=== PATIENT | female | born 1960 | race Caucasian/White ===

== ENCOUNTER → 2019-08-13 | Outpatient (CLI) | payer BC ==
[2019-08-13] MEDS: Sodium Chloride 0.9% 10 ML Syringe FLUSH ONE (10:30)
[2019-08-13] MEDS: Iopamidol 612 MG/ML 100 ML Bottle IVPUSH ONE (10:30)
== END ==
LOC: LL.CT 09:24
PROVIDERS: ATTEND Nurse Practitioner Family
DX: Z12.31 Encounter for screening mammogram for malignant neoplasm of breast (principal); M47.812 Spondylosis without myelopathy or radiculopathy, cervical region; M48.02 Spinal stenosis, cervical region; R59.0 Localized enlarged lymph nodes; M85.80 Other specified disorders of bone density and structure, unspecified site; Z78.0 Asymptomatic menopausal state
CPT/HCPCS: 70491; 77063; 77067; 77080; Q9967

== ENCOUNTER 2022-09-20 22:21 | Emergency (ER) | payer BC ==
[2022-09-20] MEDS ORDERED: Aspirin 81 MG Tab.Chew PO ONE (22:29)
[2022-09-20] MEDS ORDERED: Nitroglycerin 0.4 MG Tab.SL SL ONE (22:30)
[2022-09-20 23:08] LABS: CHLORIDE,CL 106 mmol/L (98-107); ESTIMATED GFR 68 mL/min (>=60); SODIUM,NA 140 mmol/L (136-145)
[2022-09-20 23:27] LABS: CORONAVIRUS COVID-19 NAA NEGATIVE (NEGATIVE); RESPIRATORY SYNCYTIAL VIR NAA POSITIVE (NEGATIVE)
[2022-09-20] MEDS ORDERED: Benzonatate 100 MG Cap PO ONE (23:34)
[2022-09-20] MEDS ORDERED: methylPREDNISolone Sodium Succinate 125 MG/2 ML SDV IVPUSH ONE (23:34)
[2022-09-20] MEDS ORDERED: Ketorolac 30 MG/ML SDV IVPUSH ONE (23:34)
[2022-09-20] MEDS: Sodium Chloride 0.9% 10 ML Syringe FLUSH PRN ×2 (23:45→23:47)
[2022-09-21] MEDS ORDERED: traMADol 50 MG Tab PO ONE (00:01)
== END 2022-09-20 23:59 | disposition home or self-care (01) ==
LOC: LL.ED 22:21
DX: R05.9 Cough, unspecified (principal); B97.4 Respiratory syncytial virus as the cause of diseases classified elsewhere; J44.9 Chronic obstructive pulmonary disease, unspecified; E66.9 Obesity, unspecified; Z68.30 Body mass index [BMI] 30.0-30.9, adult; Z88.0 Allergy status to penicillin; Z88.2 Allergy status to sulfonamides; Z88.8 Allergy status to other drugs, medicaments and biological substances; Z87.891 Personal history of nicotine dependence; Z20.822 Contact with and (suspected) exposure to COVID-19
CPT/HCPCS: 0241U; 36415; 71046; 80053; 82550; 84484; 85025; 85379; 85610; 93005; 93010; 96374; 96375; 99284; 99284-25; A9270-GY; J1885; J2930; J3490

== ENCOUNTER 2023-05-16 21:33 | Inpatient (IN) | payer BC ==
[2023-05-16] MEDS ORDERED: Albuterol/Ipratropium 3.0-0.5 MG/3 ML Neb Soln NEB ONE (21:48)
[2023-05-16 22:05] LABS: BASOPHILS ABSOLUTE AUTO 0.04 K/uL (0.00-0.20); BASOPHILS PERCENT AUTO 0.7 % (0.0-2.0); EOSINOPHILS ABSOLUTE AUTO 0.22 K/uL (0.00-0.50); EOSINOPHILS PERCENT AUTO 3.6 % (0.0-5.0); HEMATOCRIT 35.7 % (34.0-46.0); LYMPHOCYTES ABSOLUTE AUTO 0.97 K/uL (0.50-3.50); LYMPHOCYTES PERCENT AUTO 16.1 % (10.0-50.0); MEAN CORPUSCULAR HEMOGLOBIN 30.1 pg (28.2-33.3); MEAN CORPUSCULAR HGB CONC 33.6 g/dL (31.7-36.0); MEAN CORPUSCULAR VOLUME 89.5 fL (84.0-98.0); MONOCYTES ABSOLUTE AUTO 0.53 K/uL (0.00-1.00); MONOCYTES PERCENT AUTO 8.8 % (2.0-14.0); NEUTROPHILS ABSOLUTE AUTO 4.27 K/uL (1.40-7.00); NEUTROPHILS PERCENT AUTO 70.8 % (45.0-80.0); PLATELET COUNT,PLT 229 K/uL (150-350); RED BLOOD CELL COUNT 3.99 M/uL (3.77-5.09); RED CELL DISTRIBUTION WIDTH 12.6 % (11.2-14.1)
[2023-05-16 22:26] LABS: ALANINE AMINOTRANSFERASE,ALT 20 U/L (12-78); ALBUMIN 3.1 g/dL (3.4-5.0); ALKALINE PHOSPHATASE 112 IU/L (46-116); ANION GAP 6.9 meq/L (7-15); ASPARTATE AMNIOTRANSFERASE,AST 19 U/L (15-37); BILIRUBIN TOTAL 0.4 mg/dL (0.2-1.0); BLOOD UREA NITROGEN,BUN 19 mg/dL (7-18); CARBON DIOXIDE,CO2 27.1 mmol/L (21.0-32.0); CHLORIDE,CL 102 mmol/L (98-107); CREATININE 1.01 mg/dL (0.51-1.17); ESTIMATED GFR 62 mL/min (>=60); GLUCOSE RANDOM 131 mg/dL (70-99); MAGNESIUM 1.9 mg/dL (1.8-2.4); PRO B-TYPE NATRIUR PEPT,BNPPRO 86 pg/mL (0-125); PROTEIN TOTAL,TP 7.1 g/dL (6.4-8.2); SODIUM,NA 136 mmol/L (136-145)
[2023-05-16] MEDS ORDERED: Iopamidol 755 Mg/ML 100 ML Bottle IVPUSH ONE (23:03)
[2023-05-16] MEDS ORDERED: methylPREDNISolone Sodium Succinate 125 MG/2 ML SDV IVPUSH ONE (23:09)
[2023-05-16] MEDS ORDERED: Benzonatate 100 MG Cap PO PRN ×2 (23:11→23:45)
[2023-05-16] MEDS ORDERED: Sodium Chloride 0.9% 500 ML IV SCH (23:15)
[2023-05-17] MEDS: Azithromycin 500 MG in Sodium Chloride 0.9% 250 ML IV SCH ×2 (00:05→22:04)
[2023-05-17] MEDS ORDERED: Sodium Chloride 0.9% 10 ML Syringe FLUSH PRN (00:09)
[2023-05-17] MEDS: ALPRAZolam 0.25 MG Tab PO PRN ×2 (00:17→22:04)
[2023-05-17] MEDS: Albuterol/Ipratropium 3.0-0.5 MG/3 ML Neb Soln NEB SCH ×4 (01:33→19:32)
[2023-05-17] MEDS: Rosuvastatin 10 MG Tab PO SCH (07:52)
[2023-05-17] MEDS: Sertraline 50 MG Tab PO SCH (07:54)
[2023-05-17] MEDS: Lisinopril 5 MG Tab PO SCH (07:55)
[2023-05-17] MEDS ORDERED: Non-Formulary Medication 1 Each (Fluticasone/Umeclidin/Vilanter [Trelegy Ellipta 200-62.5- INH SCH (08:00)
[2023-05-17 08:05] LABS: BASOPHILS ABSOLUTE AUTO 0.02 K/uL (0.00-0.20); BASOPHILS PERCENT AUTO 0.4 % (0.0-2.0); EOSINOPHILS ABSOLUTE AUTO 0.01 K/uL (0.00-0.50); EOSINOPHILS PERCENT AUTO 0.2 % (0.0-5.0); LYMPHOCYTES ABSOLUTE AUTO 0.63 K/uL (0.50-3.50); MEAN CORPUSCULAR HEMOGLOBIN 29.8 pg (28.2-33.3); MEAN CORPUSCULAR HGB CONC 33.3 g/dL (31.7-36.0); MEAN CORPUSCULAR VOLUME 89.3 fL (84.0-98.0); MONOCYTES ABSOLUTE AUTO 0.04 K/uL (0.00-1.00); MONOCYTES PERCENT AUTO 0.8 % (2.0-14.0); NEUTROPHILS ABSOLUTE AUTO 4.53 K/uL (1.40-7.00); NEUTROPHILS PERCENT AUTO 86.6 % (45.0-80.0); PLATELET COUNT,PLT 229 K/uL (150-350); RED BLOOD CELL COUNT 4.03 M/uL (3.77-5.09); RED CELL DISTRIBUTION WIDTH 12.5 % (11.2-14.1); WHITE BLOOD CELL COUNT,WBC 5.2 K/uL (4.0-10.2)
[2023-05-17 08:27] LABS: APPEARANCE,URINE SLIGHTLY CLOUDY; BILIRUBIN,URINE NEGATIVE (NEGATIVE); COLOR,URINE DARK YELLOW; GLUCOSE,URINE NEGATIVE (NEGATIVE); KETONES,URINE NEGATIVE (NEGATIVE); LEUKOCYTE ESTERASE,URINE NEGATIVE (NEGATIVE); NITRITE,URINE NEGATIVE (NEGATIVE); OCCULT BLOOD,URINE NEGATIVE (NEGATIVE); PH,URINE 5.5 (5.0-9.0); PROTEIN,URINE NEGATIVE (NEGATIVE); UROBILINOGEN,URINE 0.2 E.U./dL (0.2-1.0)
[2023-05-17 08:35] LABS: BACTERIA,URINE FEW /HPF (NONE TO FEW); EPITHELIAL CELLS,URINE MANY /LPF; RBC,URINE NOT SEEN /HPF; WBC,URINE 0-5 /HPF
[2023-05-17 08:36] LABS: OTHER CRYSTALS,URINE FEW /HPF
[2023-05-17 08:57] LABS: ANION GAP 12.8 meq/L (7-15); CALCIUM 8.7 mg/dL (8.5-10.1); CARBON DIOXIDE,CO2 23.2 mmol/L (21.0-32.0); CREATININE 1.26 mg/dL (0.51-1.17); EST CRCL DRUG DOSING (CG) 34.04 mL/min; POTASSIUM,K 3.8 mmol/L (3.5-5.1)
[2023-05-17] MEDS ORDERED: Sodium Chloride 0.9% 1,000 ML IV SCH ×2 (11:30→22:00)
[2023-05-17] MEDS ORDERED: Enoxaparin 40 MG/0.4 ML Syringe SUBCUT ONE (11:44)
[2023-05-17 12:18] LABS: HEMOGLOBIN A1C 5.6 % (4.3-5.7)
[2023-05-17] MEDS: Enoxaparin 40 MG/0.4 ML Syringe SUBCUT SCH ×2 (12:55→20:47)
[2023-05-17] MEDS ORDERED: methylPREDNISolone Sodium Succinate 125 MG/2 ML SDV IVPUSH ONE (13:00)
[2023-05-17] MEDS: VILANTEROL INH SCH (19:13)
[2023-05-17] MEDS: UMECLIDINIUM INH SCH (19:13)
[2023-05-17] MEDS: [UNRECOGNIZED DRUG - OTHER] INH SCH (19:13)
[2023-05-17] MEDS ORDERED: Glucagon,Human Recombinant 1 MG Vial IM PRN (22:01)
[2023-05-17] MEDS ORDERED: 50% Dextrose in Water 50 ML Syringe IVPUSH PRN (22:01)
[2023-05-18] MEDS: Albuterol/Ipratropium 3.0-0.5 MG/3 ML Neb Soln NEB SCH ×2 (02:18→07:45)
[2023-05-18] MEDS ORDERED: Acetaminophen 325 MG Tab PO PRN (02:21)
[2023-05-18] MEDS ORDERED: Insulin Lispro 100 Units/ML 3 ML Vial SUBCUT SCH (07:00)
[2023-05-18] MEDS: Sertraline 50 MG Tab PO SCH (07:45)
[2023-05-18] MEDS: Enoxaparin 40 MG/0.4 ML Syringe SUBCUT SCH (07:45)
[2023-05-18 07:46] LABS: CALCIUM 8.3 mg/dL (8.5-10.1); CARBON DIOXIDE,CO2 24.3 mmol/L (21.0-32.0); EST CRCL DRUG DOSING (CG) 42.89 mL/min; POTASSIUM,K 4.2 mmol/L (3.5-5.1)
[2023-05-18] MEDS: Lisinopril 5 MG Tab PO SCH (07:46)
[2023-05-18] MEDS: Rosuvastatin 10 MG Tab PO SCH (07:46)
[2023-05-18] MEDS: UMECLIDINIUM INH SCH (07:47)
[2023-05-18] MEDS: [UNRECOGNIZED DRUG - OTHER] INH SCH (07:47)
[2023-05-18] MEDS: VILANTEROL INH SCH (07:47)
[2023-05-18 07:48] LABS: BASOPHILS ABSOLUTE AUTO 0.01 K/uL (0.00-0.20); BASOPHILS PERCENT AUTO 0.1 % (0.0-2.0); HEMATOCRIT 30.8 % (34.0-46.0); HEMOGLOBIN 10.4 g/dL (11.7-15.5); LYMPHOCYTES ABSOLUTE AUTO 0.79 K/uL (0.50-3.50); LYMPHOCYTES PERCENT AUTO 8.6 % (10.0-50.0); MEAN CORPUSCULAR HEMOGLOBIN 30.5 pg (28.2-33.3); MEAN CORPUSCULAR HGB CONC 33.8 g/dL (31.7-36.0); MEAN CORPUSCULAR VOLUME 90.3 fL (84.0-98.0); MONOCYTES ABSOLUTE AUTO 0.48 K/uL (0.00-1.00); MONOCYTES PERCENT AUTO 5.2 % (2.0-14.0); NEUTROPHILS ABSOLUTE AUTO 7.92 K/uL (1.40-7.00); NEUTROPHILS PERCENT AUTO 86.1 % (45.0-80.0); PLATELET COUNT,PLT 221 K/uL (150-350); RED BLOOD CELL COUNT 3.41 M/uL (3.77-5.09); RED CELL DISTRIBUTION WIDTH 12.6 % (11.2-14.1); WHITE BLOOD CELL COUNT,WBC 9.2 K/uL (4.0-10.2)
[2023-05-18 07:53] LABS: ANION GAP 12.9 meq/L (7-15)
[2023-05-18] MEDS ORDERED: predniSONE 20 MG Tab PO ONE (08:00)
== END 2023-05-18 09:54 | disposition home or self-care (01) | DRG 140 ==
LOC: LL.ED 21:33 → LL.MS 22:45
PROVIDERS: ADMIT Emergency Medicine; ATTEND Emergency Medicine
DX: J44.1 Chronic obstructive pulmonary disease with (acute) exacerbation (principal); E78.00 Pure hypercholesterolemia, unspecified; I10 Essential (primary) hypertension; F41.9 Anxiety disorder, unspecified; F32.A Depression, unspecified; R09.02 Hypoxemia; E66.01 Morbid (severe) obesity due to excess calories; R73.9 Hyperglycemia, unspecified; R79.89 Other specified abnormal findings of blood chemistry; T38.0X5A Adverse effect of glucocorticoids and synthetic analogues, initial encounter; Z68.41 Body mass index [BMI] 40.0-44.9, adult; Z88.0 Allergy status to penicillin; Z88.8 Allergy status to other drugs, medicaments and biological substances; Z88.2 Allergy status to sulfonamides; Z79.899 Other long term (current) drug therapy; Z87.891 Personal history of nicotine dependence
CPT/HCPCS: 36415; 71046; 71275; 80048; 80053; 81001; 82947; 83036; 83735; 83880; 84484; 85025; 85379; 93005; 93010; 94640; 97165-GO; 99285; A9270-GY; J0456; J1650; J1815-GY; J2930; J7030; J7040; J7050; J7512; J7620-GY; Q9967

== ENCOUNTER 2024-10-01 15:43 | Emergency (ER) | payer MEDICARE ==
[2024-10-01] MEDS ORDERED: Sodium Chloride 0.9% 10 ML Syringe FLUSH PRN (15:59)
[2024-10-01 16:57] LABS: BASOPHILS ABSOLUTE AUTO 0.05 K/uL (0.00-0.20); BASOPHILS PERCENT AUTO 0.5 % (0.0-2.0); HEMATOCRIT 40.7 % (34.0-46.0); HEMOGLOBIN 13.4 g/dL (11.7-15.5); IMMATURE GRAN ABSOLUTE AUTO 0.04 10^3/uL (0.00-0.04); IMMATURE GRAN PERCENT AUTO 0.4 % (0.0-0.4); LYMPHOCYTES ABSOLUTE AUTO 0.62 K/uL (0.50-3.50); LYMPHOCYTES PERCENT AUTO 6.5 % (10.0-50.0); MEAN CORPUSCULAR HEMOGLOBIN 28.8 pg (28.2-33.3); MEAN CORPUSCULAR HGB CONC 32.9 g/dL (31.7-36.0); MEAN CORPUSCULAR VOLUME 87.5 fL (84.0-98.0); MONOCYTES ABSOLUTE AUTO 0.64 K/uL (0.00-1.00); MONOCYTES PERCENT AUTO 6.7 % (2.0-14.0); NEUTROPHILS ABSOLUTE AUTO 8.21 K/uL (1.40-7.00); NEUTROPHILS PERCENT AUTO 85.9 % (45.0-80.0); PLATELET COUNT,PLT 141 K/uL (150-350); RED BLOOD CELL COUNT 4.65 M/uL (3.77-5.09); RED CELL DISTRIBUTION WIDTH 12.9 % (11.2-14.1); WHITE BLOOD CELL COUNT,WBC 9.6 K/uL (4.0-10.2)
[2024-10-01 17:06] LABS: ALBUMIN 3.6 g/dL (3.4-5.0); C-REACTIVE PROTEIN 4.6 mg/dL (0.05-0.30); CALCIUM 9.1 mg/dL (8.5-10.1); CARBON DIOXIDE,CO2 23.6 mmol/L (21.0-32.0); CREATININE 1.13 mg/dL (0.51-1.17); EST CRCL DRUG DOSING (CG) 35.18 mL/min; MAGNESIUM 2.3 mg/dL (1.8-2.4); PROTEIN TOTAL,TP 7.6 g/dL (6.4-8.2)
[2024-10-01 17:09] LABS: APPEARANCE,URINE SLIGHTLY CLOUDY; BILIRUBIN,URINE SMALL (NEGATIVE); COLOR,URINE YELLOW; GLUCOSE,URINE NEGATIVE (NEGATIVE); KETONES,URINE TRACE mg/dL (NEGATIVE); LEUKOCYTE ESTERASE,URINE NEGATIVE (NEGATIVE); NITRITE,URINE NEGATIVE (NEGATIVE); OCCULT BLOOD,URINE NEGATIVE (NEGATIVE); PROTEIN,URINE 100 mg/dL (NEGATIVE)
[2024-10-01 17:09] LABS: ANION GAP 15.4 meq/L (7-15)
[2024-10-01 17:12] LABS: LACTIC ACID 0.6 mmol/L (0.4-2.0)
[2024-10-01 17:22] LABS: BACTERIA,URINE RARE /HPF (NONE TO FEW); EPITHELIAL CELLS,URINE MANY /LPF; MUCUS,URINE MODERATE /LPF (NEGATIVE); RBC,URINE 0-5 /HPF; WBC,URINE 0-5 /HPF
[2024-10-01] MEDS: Take Home: traMADol 50 MG, 4 Tab Pack PO ONE (18:03)
== END 2024-10-01 18:10 | disposition home or self-care (01) ==
LOC: LL.ED 15:43
DX: U07.1 COVID-19 (principal); I10 Essential (primary) hypertension; E78.00 Pure hypercholesterolemia, unspecified; E66.9 Obesity, unspecified; Z90.710 Acquired absence of both cervix and uterus; Z79.899 Other long term (current) drug therapy; Z79.51 Long term (current) use of inhaled steroids; Z88.0 Allergy status to penicillin; Z88.2 Allergy status to sulfonamides; Z88.8 Allergy status to other drugs, medicaments and biological substances; Z68.41 Body mass index [BMI] 40.0-44.9, adult
CPT/HCPCS: 36415; 71045; 80053; 81001; 83605; 83735; 85025; 86140; 87040; 87428-QW; 87651-QW; 99284; 99285; A9270-GY

== ENCOUNTER 2025-07-20 08:22 | Emergency (ER) | payer MEDICARE ==
[2025-07-20 08:56] LABS: BASOPHILS ABSOLUTE AUTO 0.05 K/uL (0.00-0.20); BASOPHILS PERCENT AUTO 0.8 % (0.0-2.0); EOSINOPHILS ABSOLUTE AUTO 0.22 K/uL (0.00-0.50); EOSINOPHILS PERCENT AUTO 3.5 % (0.0-5.0); IMMATURE GRAN ABSOLUTE AUTO 0.09 10^3/uL (0.00-0.04); IMMATURE GRAN PERCENT AUTO 1.4 % (0.0-0.4); LYMPHOCYTES ABSOLUTE AUTO 0.97 K/uL (0.50-3.50); LYMPHOCYTES PERCENT AUTO 15.3 % (10.0-50.0); MONOCYTES ABSOLUTE AUTO 0.54 K/uL (0.00-1.00); MONOCYTES PERCENT AUTO 8.5 % (2.0-14.0); NEUTROPHILS ABSOLUTE AUTO 4.47 K/uL (1.40-7.00); NEUTROPHILS PERCENT AUTO 70.5 % (45.0-80.0); PLATELET COUNT,PLT 224 K/uL (150-350); RED BLOOD CELL COUNT 4.18 M/uL (3.77-5.09); RED CELL DISTRIBUTION WIDTH 12.1 % (11.2-14.1); WHITE BLOOD CELL COUNT,WBC 6.3 K/uL (4.0-10.2)
[2025-07-20 09:22] LABS: ALANINE AMINOTRANSFERASE,ALT 27 U/L (12-78); ASPARTATE AMNIOTRANSFERASE,AST 22 U/L (15-37); BILIRUBIN TOTAL 0.4 mg/dL (0.2-1.0); BLOOD UREA NITROGEN,BUN 13 mg/dL (7-18); CARBON DIOXIDE,CO2 29.6 mmol/L (21.0-32.0); CHLORIDE,CL 107 mmol/L (98-107); CREATININE 0.93 mg/dL (0.51-1.17); GLUCOSE RANDOM 118 mg/dL (70-99); POTASSIUM,K 3.6 mmol/L (3.5-5.1); PROTEIN TOTAL,TP 7.3 g/dL (6.4-8.2); SODIUM,NA 145 mmol/L (136-145)
[2025-07-20 09:27] LABS: ESTIMATED GFR 67 mL/min (>=60)
[2025-07-20 10:30] LABS: CORONAVIRUS COVID-19 NAA NEGATIVE (NEGATIVE); INFLUENZA A NAA NEGATIVE (NEGATIVE); INFLUENZA B NAA NEGATIVE (NEGATIVE); RESPIRATORY SYNCYTIAL VIR NAA NEGATIVE (NEGATIVE)
[2025-07-20] MEDS: cefTRIAXone 1 GM, Lidocaine 1% 2.1 ML IM ONE (10:30)
== END 2025-07-20 10:55 | disposition home or self-care (01) ==
LOC: LL.ED 08:22 → SUPCPDRO 08:22 → LL.ED 10:55
DX: U07.1 COVID-19 (principal); J18.9 Pneumonia, unspecified organism; J44.1 Chronic obstructive pulmonary disease with (acute) exacerbation; R09.02 Hypoxemia; I10 Essential (primary) hypertension; E78.00 Pure hypercholesterolemia, unspecified; E66.9 Obesity, unspecified; Z88.0 Allergy status to penicillin; Z88.2 Allergy status to sulfonamides; Z88.8 Allergy status to other drugs, medicaments and biological substances; Z79.899 Other long term (current) drug therapy; Z90.710 Acquired absence of both cervix and uterus
CPT/HCPCS: 36415; 71046; 80053; 85025; 87637; 94640; 96372; 99285; A9270; J0696; J2003